=== PATIENT | male | born 1940 | race Caucasian/White ===

== ENCOUNTER 2018-02-21 12:01 | Inpatient (IN) | payer MEDICARE, MEDICAID ==
--- NOTE | 2018-02-21 12:13 | ED Physician Chart ---
ED Chief Complaint/HPI - Patient Information Date Seen:: 02/21/18 Time Seen:: 12:08 Chief Complaint:: cough History of Present Illness:: 77 yr old male here from [facility] in [place] at the bedside bib paramedics for cough for 3 dAYS ALONG WITH CONGESTION AND TROUBLE BRING ING UP THE PHLEGM PT BOUDREAUX S MODERATE DEMENTIA AND IS NOT CAPABLE OF TAKING CARE OF HIMSELF Allergies:: Allergies Allergy/AdvReac Type Severity Reaction Status Date / Time MDX No Known Allergies - Nka Allergy Verified 12/23/12 12:45 [No Known Allergies - Nka] Historian:: Family Member () ED Review of Systems - Review of Systems Pulmonary: Cough ED Past Medical History - Past Medical History Past Medical History: DM ED Physical Exam - Physical Examination General/Constitutional: Awake, Well-developed, well-nourished, No distress Other Gen/Cons comments:: PT NOT ANSWERING NOT CONVERSING MUCH Head: Atraumatic Eyes: Lids, conjuctiva normal Skin: Nl inspection ENMT: External ears, nose nl Neck: Nontender Respiratory: Nl effort/Exclusion Cardio Vascular: No murmur, gallop, rubs GI: No tenderness/rebounding/guarding, No hernia : No CVA tenderness Extremities: No tenderness or effusion ED Assessment - Assessment General Assessment: DEMENTIA WEAKNESS COUGH ED Septic Shock - . Is Septic Shock (SBP<90, OR Lactate>4 mmol\L) present?: No ED Reassessment (Disposition) - Diagnosis Diagnosis:: COUGH CONGESTION IN ELDERLY MALE WITH DEMENTIA - Patient Disposition Discharge/Transfer:: Acute Care w/in this hosp
[2018-02-21] MEDS ORDERED: Sodium Chloride 0.9% 1,000 ML IV ONE (12:20)
[2018-02-21 12:46] LABS: % BASOPHILS 0.3 % (0.0-2.0); % EOSINOPHILS 5.2 % (0.0-5.0); % LYMPHOCYTES 13.7 % (20.0-50.0); % NEUTROPHILS 70.8 % (40.0-80.0); EOSINOPHILE ABSOLUTE 0.6 Th/cmm (0.1-0.4); HEMATOCRIT 43.4 % (41.0-60); HEMOGLOBIN 14.4 gm/dL (12-16); LYMPHOCYTE ABSOLUTE 1.6 Th/cmm (1.5-3.0); MEAN CELL VOLUME 89.5 fl (80-99); MEAN CORPUSCULAR HEMOGLOBIN 29.8 pg (27.0-31.0); MEAN CORPUSCULAR HGB CONC 33.3 pg (28.0-36.0); MONOCYTE ABSOLUTE 1.1 Th/cmm (0.3-1.0); NEUTROPHILE ABSOLUTE 8.1 Th/cmm (1.8-8.0); PLATELET COUNT 335 Th/cmm (150-400); RED BLOOD COUNT 4.84 Mil/cmm (3.80-5.80); RED CELL DISTRIBUTION WIDTH 12.8 % (11.5-20.0); WHITE BLOOD COUNT 11.4 Th/cmm (4.8-10.8)
[2018-02-21 12:57] LABS: INR 1.01 (0.5-1.4); PROTHROMBIN TIME (TEST) 10.5 SECONDS (9.5-11.5)
[2018-02-21 13:01] LABS: ALBUMIN 3.7 gm/dL (4.2-5.5); ALKALINE PHOSPHATASE 156 U/L (34-104); ANION GAP 11.4 (7.0-16.0); BILIRUBIN,TOTAL 0.6 mg/dL (0.3-1.0); BUN - UREA NITROGEN 25 mg/dL (7-25); CALCIUM SERUM 8.9 mg/dL (8.6-10.3); CARBON DIOXIDE 25.9 mEq/L (21.0-31.0); CHLORIDE 100 mEq/L (98-107); CREATININE - SERUM 1.2 mg/dL (0.7-1.3); GLUCOSE 121 mg/dL (70-105); POTASSIUM SERUM 3.3 mEq/L (3.5-5.1); SGOT 23 U/L (13-39); SGPT/ALT 16 U/L (7-52); SODIUM SERUM 134 mEq/L (136-145); TOTAL PROTEIN,SERUM 7.4 gm/dL (6.0-8.3)
[2018-02-21 15:21] LABS: URINE BILIRUBIN NEGATIVE (NEGATIVE); URINE BLOOD NEGATIVE (NEGATIVE); URINE GLUCOSE (UA) NEGATIVE (NEGATIVE); URINE KETONE TRACE mg/dL (NEGATIVE); URINE LEUKOCYTE ESTERASE NEGATIVE (NEGATIVE); URINE MICROSCOPIC INDICATED? YES; URINE NITRATE NEGATIVE (NEGATIVE); URINE PROTEIN NEGATIVE (NEGATIVE); URINE SOURCE CLEAN C; URINE UROBILINOGEN 0.2 E.U./dL (0.2 - 1.0)
[2018-02-21 15:27] LABS: URINE CLARITY CLEAR (CLEAR); URINE COLOR YELLOW
[2018-02-21 15:28] LABS: URINE BACTERIA NONE SEEN /hpf (NONE SEEN); URINE EPITHELIAL CELLS NONE SEEN /lpf (FEW); URINE RBC NONE SEEN /hpf (0-5); URINE WBC NONE SEEN /hpf (0-5)
[2018-02-21] MEDS ORDERED: D5-0.45NS w/20 mEq KCL 1,000 ML IV ONE (16:35)
[2018-02-21] MEDS: D5-0.45NS w/20 mEq KCL 1,000 ML IV SCH (16:43)
[2018-02-21] MEDS ORDERED: Pneumococcal Vaccine 0.5 mL Vial IM ONE (17:34)
[2018-02-21] MEDS ORDERED: APAP/Codeine 300 mg/30 mg Tab PO PRN (17:40)
--- NOTE | 2018-02-21 19:46 | History & Physical ---
ADMIT DATE: 02/21/2018 CHIEF COMPLAINT: Multiple falls. HISTORY OF PRESENT ILLNESS: The patient is a 77-year-old male with long history of hypertension, degenerative joint disease, seizure disorder, presented to the Emergency Room with multiple falls. Initial workup significant for mild elevation of the troponin. The patient admitted to the hospital. He denies any chest pain, no nausea or vomiting. No fever, no chills, no dysuria or hematuria. PAST MEDICAL HISTORY: Significant for seizure disorder and hypertension. PAST SURGICAL HISTORY: No recent surgery. ALLERGIES: None. MEDICATIONS: Follow admission reconciliation. SOCIAL HISTORY: No alcohol, no drug. No smoke. FAMILY HISTORY: Noncontributory. REVIEW OF SYSTEMS: RENAL SYSTEM: No history of chronic renal disorder. CARDIOVASCULAR SYSTEM: No coronary artery disease. ENDOCRINE SYSTEM: No diabetes or thyroid problem. GASTROINTESTINAL SYSTEM: Lower gastrointestinal bleed. NEUROLOGICAL SYSTEM: Seizure disorder. MUSCULOSKELETAL SYSTEM: Has degenerative joint disease. RESPIRATORY SYSTEM: No asthma. GENITOURINARY: No dysuria or hematuria. PHYSICAL EXAMINATION: GENERAL: He is awake, alert, mildly confused. VITAL SIGNS: Temperature 98.6, heart rate 68, blood pressure 159/77. HEENT: Normocephalic. Pupils reactive to light and accommodation. Sclerae clear. NECK: Supple. Negative for lymphadenopathy, JVD or bruit. CHEST: Entry of air bilaterally normal. No rhonchi or wheezing. HEART: S1, S2. No murmur or gallop rhythm. ABDOMEN: Soft, bowel sounds positive. EXTREMITIES: No edema. NEUROLOGIC: He is awake, mildly confused, has weakness of lower extremities. LABORATORY DATA: White blood cell 11.4, hemoglobin 14.4, hematocrit 43.4, platelet 335. INR 1.01. Sodium 134, potassium 3.3, BUN 25, creatinine ___.2. Troponin 0.4. ASSESSMENT: 1. Multiple falls. 2. Hypertension. 3. Seizure disorder for elevation of abnormal cardiac enzyme. 4. Degenerative joint disease. PLAN: The patient admitted to telemetry under Dr. Antonio's service. Start him on cardiac diet. The patient will resume his medication and diet. Troponin in a.m. Dilantin level in a.m. Phenobarbital level in a.m. The patient is a full code. JOB# [id number]
[2018-02-21] MEDS ORDERED: Non-Formulary Item 1 EA (Melatonin [Melatonin] 6 MG) PO SCH (21:00)
[2018-02-22] MEDS: D5-0.45NS w/20 mEq KCL 1,000 ML IV SCH ×2 (05:25→18:06)
[2018-02-22 07:36] LABS: PHENYTOIN 31.9 ug/ml (10.0-20.0)
--- NOTE | 2018-02-22 08:28 | Diagnostic Imaging Report ---
CHEST X-RAY: AP view INDICATION: Shortness of breath COMPARISON: None FINDINGS: Increased interstitial lung markings are noted with mild elevation of the left hemidiaphragm. No focal consolidation or effusions. Skinfold is seen along the right hemithorax. No evidence of pneumothorax. Heart size normal. Degenerative changes of the spine are noted. IMPRESSION: Increased interstitial lung markings suggestive of chronic lung changes. No focal consolidation is identified.
--- NOTE | 2018-02-22 08:28 | Diagnostic Imaging Report ---
Right tib-fib 2 views Indication: pain Comparison: none Findings: Degenerative changes of the knee joint and ankle joint are noted with postsurgical changes of the medial malleolus. Soft tissue swelling is seen along the lateral malleolus region. No evidence of an acute fracture or dislocation. Atherosclerosis is noted. Impression: No evidence of an acute fracture. Soft tissue swelling of the right lateral malleolus region is noted. Degenerative changes. Postsurgical changes of the medial malleolus. Atherosclerotic vascular disease. In the setting of trauma, if clinical symptoms persist and there is continued concern for an occult fracture, follow up exams in 5-7 days is suggested.
[2018-02-22] MEDS: Lactulose 10 Gm/15 mL 30mL UDC PO SCH (08:54)
[2018-02-22] MEDS: Non-Formulary Item 1 EA (Protein Supplement [Promod] 30 ML) PO SCH (08:57)
[2018-02-22] MEDS ORDERED: MELOXICAM 15 MG PO SCH (09:00)
[2018-02-22] MEDS ORDERED: Non-Formulary Item 1 EA (Duloxetine Hcl [Cymbalta] 60 MG) PO SCH (09:00)
--- NOTE | 2018-02-22 21:01 | Internal Medicine Prog Note ---
Internal Medicine Subjective - Subjective Service Date: 02/22/18 Patient seen and examined:: with staff Patient is:: awake, in bed, confused Per staff patient has:: no adverse event (HE FEELS WEAK) Internal Medicine Objective - Results Result Diagrams: 02/21/18 12:30 02/21/18 12:30 Recent Labs: Laboratory Last Values WBC 11.4 Th/cmm (4.8-10.8) H 02/21/18 12:30 RBC 4.84 Mil/cmm (3.80-5.80) 02/21/18 12:30 Hgb 14.4 gm/dL (12-16) 02/21/18 12:30 Hct 43.4 % (41.0-60) 02/21/18 12:30 MCV 89.5 fl (80-99) 02/21/18 12:30 MCH 29.8 pg (27.0-31.0) 02/21/18 12:30 MCHC Differential 33.3 pg (28.0-36.0) 02/21/18 12:30 RDW 12.8 % (11.5-20.0) 02/21/18 12:30 Plt Count 335 Th/cmm (150-400) 02/21/18 12:30 MPV 7.0 fl 02/21/18 12:30 Neutrophils % 70.8 % (40.0-80.0) 02/21/18 12:30 Lymphocytes % 13.7 % (20.0-50.0) L 02/21/18 12:30 Monocytes % 10.0 % (2.0-10.0) 02/21/18 12:30 Eosinophils % 5.2 % (0.0-5.0) H 02/21/18 12:30 Basophils % 0.3 % (0.0-2.0) 02/21/18 12:30 PT 10.5 SECONDS (9.5-11.5) 02/21/18 12:30 INR 1.01 (0.5-1.4) 02/21/18 12:30 PTT (Actin FS) 27.0 SECONDS (26.0-38.0) 02/21/18 12:30 Sodium 134 mEq/L (136-145) L 02/21/18 12:30 Potassium 3.3 mEq/L (3.5-5.1) L 02/21/18 12:30 Chloride 100 mEq/L (98-107) 02/21/18 12:30 Carbon Dioxide 25.9 mEq/L (21.0-31.0) 02/21/18 12:30 Anion Gap 11.4 (7.0-16.0) 02/21/18 12:30 BUN 25 mg/dL (7-25) 02/21/18 12:30 Creatinine 1.2 mg/dL (0.7-1.3) 02/21/18 12:30 Est GFR ( Amer) TNP 02/21/18 12:30 Est GFR (Non-Af Amer) TNP 02/21/18 12:30 BUN/Creatinine Ratio 20.8 02/21/18 12:30 Glucose 121 mg/dL (70-105) H 02/21/18 12:30 POC Glucose 121 MG/DL (70-105) H 02/22/18 02:51 Calcium 8.9 mg/dL (8.6-10.3) 02/21/18 12:30 Total Bilirubin 0.6 mg/dL (0.3-1.0) 02/21/18 12:30 AST 23 U/L (13-39) 02/21/18 12:30 ALT 16 U/L (7-52) 02/21/18 12:30 Alkaline Phosphatase 156 U/L (34-104) H 02/21/18 12:30 Troponin I 0.08 ng/mL (0.01-0.05) H* D 02/22/18 05:45 Total Protein 7.4 gm/dL (6.0-8.3) 02/21/18 12:30 Albumin 3.7 gm/dL (4.2-5.5) L 02/21/18 12:30 Globulin 3.7 gm/dL 02/21/18 12:30 Albumin/Globulin Ratio 1.0 (1.0-1.8) 02/21/18 12:30 Urine Source CLEAN C 02/21/18 15:00 Urine Color YELLOW 02/21/18 15:00 Urine Clarity CLEAR (CLEAR) 02/21/18 15:00 Urine pH 6.0 (4.6 - 8.0) 02/21/18 15:00 Ur Specific [place] >= 1.030 (1.005-1.030) 02/21/18 15:00 Urine Protein NEGATIVE mg/dL (NEGATIVE) 02/21/18 15:00 Urine Glucose (UA) NEGATIVE mg/dL (NEGATIVE) 02/21/18 15:00 Urine Ketones TRACE mg/dL (NEGATIVE) 02/21/18 15:00 Urine Blood NEGATIVE (NEGATIVE) 02/21/18 15:00 Urine Nitrate NEGATIVE (NEGATIVE) 02/21/18 15:00 Urine Bilirubin NEGATIVE (NEGATIVE) 02/21/18 15:00 Urine Urobilinogen 0.2 E.U./dL (0.2 - 1.0) 02/21/18 15:00 Ur Leukocyte Esterase NEGATIVE (NEGATIVE) 02/21/18 15:00 Urine RBC NONE SEEN /hpf (0-5) 02/21/18 15:00 Urine WBC NONE SEEN /hpf (0-5) 02/21/18 15:00 Ur Epithelial Cells NONE SEEN /lpf (FEW) 02/21/18 15:00 Urine Bacteria NONE SEEN /hpf (NONE SEEN) 02/21/18 15:00 Phenytoin 31.9 ug/ml (10.0-20.0) H* 02/22/18 05:45 Phenobarbital 15.9 ug/ml (10-40.0) 02/22/18 05:45 - Physical Exam Vitals and I&O: Vital Signs Temp 97.1 F 02/22/18 16:00 Pulse 68 02/22/18 19:19 Resp 18 02/22/18 20:00 BP 125/69 02/22/18 17:58 Pulse Ox 96 02/22/18 19:19 Intake & Output 02/22/18 02/22/18 02/23/18 06:59 18:59 06:59 Intake Total 952.5 1351.25 120 Output Total 1000 200 Balance 952.5 351.25 -80 Weight (lbs) 90.35 kg 90.435 kg 90.435 kg Intake: Intake, IV Amount 952.5 951.25 D5-0.45NS w/20 mEq KCL 1, 952.5 951.25 000 ml @ 75 mls/hr IV . [id number] ARIN Rx#:[id number] Oral 400 120 Output: Urine 1000 200 Other: # Voids 1 1 # Bowel Movements 0 Weight Source Bedscale Bedscale Bedscale Active Medications: Current Medications Acetaminophen (Tylenol) 650 mg PO Q6HR PRN PRN Reason: TEMP >100 OR PAIN Stop: 04/22/18 17:39 Acetaminophen/Codeine Phosphate (Tylenol W/Codeine #3) 1 tab PO Q6HR PRN PRN Reason: MODERATE/SEVERE PAIN Stop: 04/22/18 17:39 Last Admin: 02/22/18 03:07 Dose: 1 tab Amlodipine Besylate (Norvasc) 5 mg PO BID ARIN Stop: 04/23/18 08:59 Last Admin: 02/22/18 17:58 Dose: 5 mg Docusate Sodium (Colace) 250 mg PO BID ARIN Stop: 04/23/18 08:59 Last Admin: 02/22/18 17:58 Dose: 250 mg Duloxetine HCl (Cymbalta) 60 mg PO DAILY ARIN Stop: 04/23/18 08:59 Hydrochlorothiazide (Hctz) 12.5 mg PO DAILY ARIN Stop: 04/23/18 08:59 Last Admin: 02/22/18 08:54 Dose: 12.5 mg Potassium Chloride/Dextrose/Sod Cl (D5-0.45ns W/20 Meq Kcl) 1,000 mls @ 75 mls/ hr IV .[id number] ARIN Stop: 04/22/18 15:27 Last Admin: 02/22/18 18:06 Dose: 75 mls/hr Lactulose (Cephulac) 20 gm PO DAILY ARIN Stop: 04/23/18 08:59 Last Admin: 02/22/18 08:54 Dose: 20 gm Lorazepam (Ativan) 1 mg PO Q6HR PRN; Protocol PRN Reason: Agitation Stop: 04/23/18 07:02 Miscellaneous (Melatonin [Melatonin]) 6 mg PO HS ARIN Stop: 04/22/18 20:59 Miscellaneous (Meloxicam [Mobic*]) 15 mg PO DAILY ARIN Stop: 04/23/18 08:59 Miscellaneous (Protein Supplement [Promod]) 30 ml PO DAILY ARIN Stop: 04/23/18 08:59 Last Admin: 02/22/18 08:57 Dose: Not Given Morphine Sulfate (Ms-Contin) 30 mg PO Q12H ARIN Stop: 04/22/18 17:44 Last Admin: 02/22/18 17:59 Dose: 30 mg Phenobarbital (Phenobarbital) 32.4 mg PO BID ARIN Stop: 04/23/18 08:59 Last Admin: 02/22/18 17:58 Dose: 32.4 mg Phenytoin (Dilantin) 200 mg PO DAILY [facility] Stop: 04/23/18 08:59 Last Admin: 02/22/18 08:55 Dose: Not Given Phenytoin (Dilantin) 300 mg PO 1700 ARIN Stop: 04/23/18 16:59 Last Admin: 02/22/18 17:59 Dose: Not Given Phenytoin (Dilantin) 300 mg PO HS ARIN Stop: 04/22/18 20:59 Last Admin: 02/22/18 20:56 Dose: Not Given General: demented HEENT: PERRLA, anicteric sclerae, throat clear Neck: No JVD, No thyromegaly, +2 carotid pulse wo bruit, No LAD Lungs: CTAB Cardiovascular: Normal S1, Normal S2, without murmur Abdomen: non-tender, non-distended Extremities: clear Neurological: no change Internal Medicine Assmt/Plan - Assessment Assessment: 1.DILANTIN OVERDOSE. 2.HTN. 3.DJD. 4.SEIZURE DISORDER. - Plan Plan: HOLD DILANTIN.CHECK DILANTIN IN AM.
[2018-02-23] MEDS: Lactulose 10 Gm/15 mL 30mL UDC PO SCH (08:52)
[2018-02-23] MEDS: D5-0.45NS w/20 mEq KCL 1,000 ML IV SCH (17:45)
[2018-02-23] MEDS: Non-Formulary Item 1 EA (Protein Supplement [Promod] 30 ML) PO SCH (18:52)
--- NOTE | 2018-02-23 22:16 | Internal Medicine Prog Note ---
Internal Medicine Subjective - Subjective Service Date: 02/23/18 Patient seen and examined:: with staff (HE FEELS BETTER,NO CHEST PAIN.) Patient is:: awake, in bed, confused Per staff patient has:: no adverse event (HE FEELS WEAK) Internal Medicine Objective - Results Result Diagrams: 02/21/18 12:30 02/21/18 12:30 Recent Labs: Laboratory Last Values WBC 11.4 Th/cmm (4.8-10.8) H 02/21/18 12:30 RBC 4.84 Mil/cmm (3.80-5.80) 02/21/18 12:30 Hgb 14.4 gm/dL (12-16) 02/21/18 12:30 Hct 43.4 % (41.0-60) 02/21/18 12:30 MCV 89.5 fl (80-99) 02/21/18 12:30 MCH 29.8 pg (27.0-31.0) 02/21/18 12:30 MCHC Differential 33.3 pg (28.0-36.0) 02/21/18 12:30 RDW 12.8 % (11.5-20.0) 02/21/18 12:30 Plt Count 335 Th/cmm (150-400) 02/21/18 12:30 MPV 7.0 fl 02/21/18 12:30 Neutrophils % 70.8 % (40.0-80.0) 02/21/18 12:30 Lymphocytes % 13.7 % (20.0-50.0) L 02/21/18 12:30 Monocytes % 10.0 % (2.0-10.0) 02/21/18 12:30 Eosinophils % 5.2 % (0.0-5.0) H 02/21/18 12:30 Basophils % 0.3 % (0.0-2.0) 02/21/18 12:30 PT 10.5 SECONDS (9.5-11.5) 02/21/18 12:30 INR 1.01 (0.5-1.4) 02/21/18 12:30 PTT (Actin FS) 27.0 SECONDS (26.0-38.0) 02/21/18 12:30 Sodium 134 mEq/L (136-145) L 02/21/18 12:30 Potassium 3.3 mEq/L (3.5-5.1) L 02/21/18 12:30 Chloride 100 mEq/L (98-107) 02/21/18 12:30 Carbon Dioxide 25.9 mEq/L (21.0-31.0) 02/21/18 12:30 Anion Gap 11.4 (7.0-16.0) 02/21/18 12:30 BUN 25 mg/dL (7-25) 02/21/18 12:30 Creatinine 1.2 mg/dL (0.7-1.3) 02/21/18 12:30 Est GFR ( Amer) TNP 02/21/18 12:30 Est GFR (Non-Af Amer) TNP 02/21/18 12:30 BUN/Creatinine Ratio 20.8 02/21/18 12:30 Glucose 121 mg/dL (70-105) H 02/21/18 12:30 POC Glucose 121 MG/DL (70-105) H 02/22/18 02:51 Calcium 8.9 mg/dL (8.6-10.3) 02/21/18 12:30 Total Bilirubin 0.6 mg/dL (0.3-1.0) 02/21/18 12:30 AST 23 U/L (13-39) 02/21/18 12:30 ALT 16 U/L (7-52) 02/21/18 12:30 Alkaline Phosphatase 156 U/L (34-104) H 02/21/18 12:30 Troponin I 0.08 ng/mL (0.01-0.05) H* D 02/22/18 05:45 Total Protein 7.4 gm/dL (6.0-8.3) 02/21/18 12:30 Albumin 3.7 gm/dL (4.2-5.5) L 02/21/18 12:30 Globulin 3.7 gm/dL 02/21/18 12:30 Albumin/Globulin Ratio 1.0 (1.0-1.8) 02/21/18 12:30 Urine Source CLEAN C 02/21/18 15:00 Urine Color YELLOW 02/21/18 15:00 Urine Clarity CLEAR (CLEAR) 02/21/18 15:00 Urine pH 6.0 (4.6 - 8.0) 02/21/18 15:00 Ur Specific [place] >= 1.030 (1.005-1.030) 02/21/18 15:00 Urine Protein NEGATIVE mg/dL (NEGATIVE) 02/21/18 15:00 Urine Glucose (UA) NEGATIVE mg/dL (NEGATIVE) 02/21/18 15:00 Urine Ketones TRACE mg/dL (NEGATIVE) 02/21/18 15:00 Urine Blood NEGATIVE (NEGATIVE) 02/21/18 15:00 Urine Nitrate NEGATIVE (NEGATIVE) 02/21/18 15:00 Urine Bilirubin NEGATIVE (NEGATIVE) 02/21/18 15:00 Urine Urobilinogen 0.2 E.U./dL (0.2 - 1.0) 02/21/18 15:00 Ur Leukocyte Esterase NEGATIVE (NEGATIVE) 02/21/18 15:00 Urine RBC NONE SEEN /hpf (0-5) 02/21/18 15:00 Urine WBC NONE SEEN /hpf (0-5) 02/21/18 15:00 Ur Epithelial Cells NONE SEEN /lpf (FEW) 02/21/18 15:00 Urine Bacteria NONE SEEN /hpf (NONE SEEN) 02/21/18 15:00 Phenytoin 27.6 ug/ml (10.0-20.0) H* 02/23/18 04:35 Phenobarbital 15.9 ug/ml (10-40.0) 02/22/18 05:45 - Physical Exam Vitals and I&O: Vital Signs Temp 98.2 F 02/23/18 16:00 Pulse 66 02/23/18 16:23 Resp 18 02/23/18 20:00 BP 149/56 02/23/18 16:23 Pulse Ox 95 02/23/18 16:00 Intake & Output 02/23/18 02/23/18 02/24/18 06:59 18:59 06:59 Intake Total 120 1600 140 Output Total 200 Balance -80 1600 140 Weight (lbs) 90.435 kg 90.435 kg 90.435 kg Intake: Intake, IV Amount 1000 D5-0.45NS w/20 mEq KCL 1, 1000 000 ml @ 75 mls/hr IV . [id number] ARIN Rx#:[id number] Oral 120 600 140 Output: Urine 200 Other: # Voids 1 2 1 Weight Source Bedscale Bedscale Bedscale Active Medications: Current Medications Acetaminophen (Tylenol) 650 mg PO Q6HR PRN PRN Reason: TEMP >100 OR PAIN Stop: 04/22/18 17:39 Acetaminophen/Codeine Phosphate (Tylenol W/Codeine #3) 1 tab PO Q6HR PRN PRN Reason: MODERATE/SEVERE PAIN Stop: 04/22/18 17:39 Last Admin: 02/22/18 03:07 Dose: 1 tab Amlodipine Besylate (Norvasc) 5 mg PO BID ARIN Stop: 04/23/18 08:59 Last Admin: 02/23/18 16:23 Dose: 5 mg Docusate Sodium (Colace) 250 mg PO BID ARIN Stop: 04/23/18 08:59 Last Admin: 02/23/18 16:22 Dose: 250 mg Duloxetine HCl (Cymbalta) 60 mg PO DAILY [facility]IN Stop: 04/24/18 00:14 Last Admin: 02/23/18 08:52 Dose: 60 mg Hydrochlorothiazide (Hctz) 12.5 mg PO DAILY [facility]IN Stop: 04/23/18 08:59 Last Admin: 02/23/18 08:52 Dose: 12.5 mg Potassium Chloride/Dextrose/Sod Cl (D5-0.45ns W/20 Meq Kcl) 1,000 mls @ 75 mls/ hr IV .[id number] ARIN Stop: 04/22/18 15:27 Last Admin: 02/23/18 17:45 Dose: 75 mls/hr Lactulose (Cephulac) 20 gm PO DAILY [facility]IN Stop: 04/23/18 08:59 Last Admin: 02/23/18 08:52 Dose: 20 gm Lorazepam (Ativan) 1 mg PO Q6HR PRN; Protocol PRN Reason: Agitation Stop: 04/23/18 07:02 Miscellaneous (Melatonin [Melatonin]) 6 mg PO HS ARIN Stop: 04/22/18 20:59 Miscellaneous (Meloxicam [Mobic*]) 15 mg PO DAILY [facility]IN Stop: 04/23/18 08:59 Morphine Sulfate (Ms-Contin) 30 mg PO Q12H AIRN Stop: 04/22/18 17:44 Last Admin: 02/23/18 17:46 Dose: 30 mg Phenobarbital (Phenobarbital) 32.4 mg PO BID ARIN Stop: 04/23/18 08:59 Last Admin: 02/23/18 16:23 Dose: 32.4 mg Phenytoin (Dilantin) 200 mg PO DAILY [facility]IN Stop: 04/23/18 08:59 Last Admin: 02/23/18 08:53 Dose: Not Given Phenytoin (Dilantin) 300 mg PO 1700 ARIN Stop: 04/23/18 16:59 Last Admin: 02/23/18 16:23 Dose: Not Given Phenytoin (Dilantin) 300 mg PO HS ARIN Stop: 04/22/18 20:59 Last Admin: 02/22/18 20:56 Dose: Not Given General: demented HEENT: PERRLA, anicteric sclerae, throat clear Neck: No JVD, No thyromegaly, +2 carotid pulse wo bruit, No LAD Lungs: CTAB Cardiovascular: Normal S1, Normal S2, without murmur Abdomen: non-tender, non-distended Extremities: clear Neurological: no change Internal Medicine Assmt/Plan - Assessment Assessment: 1.DILANTIN OVERDOSE. 2.HTN. 3.DJD. 4.SEIZURE DISORDER. - Plan Plan: HOLD DILANTIN.CHECK DILANTIN IN AM.
[2018-02-24] MEDS: D5-0.45NS w/20 mEq KCL 1,000 ML IV SCH (06:44)
[2018-02-24] MEDS: Lactulose 10 Gm/15 mL 30mL UDC PO SCH (09:07)
== END 2018-02-24 18:00 | DRG 917 ==
LOC: ER 12:01 → TELE 16:07
PROVIDERS: ADMIT Family Medicine; ATTEND Family Medicine
DX: T42.0X1A Poisoning by hydantoin derivatives, accidental (unintentional), initial encounter (principal); G92 Toxic encephalopathy; E87.1 Hypo-osmolality and hyponatremia; R29.6 Repeated falls; I10 Essential (primary) hypertension; M19.90 Unspecified osteoarthritis, unspecified site; Z23 Encounter for immunization; E11.9 Type 2 diabetes mellitus without complications; F03.90 Unspecified dementia, unspecified severity, without behavioral disturbance, psychotic disturbance, mood disturbance, and anxiety; G40.909 Epilepsy, unspecified, not intractable, without status epilepticus; Y92.89 Other specified places as the place of occurrence of the external cause
CPT/HCPCS: 36415-UA; 71045-TC; 73590-TC-RT; 80053-TC; 80184-TC; 80185-TC; 81001-TC; 82948-90; 84484-TC; 85025-TC; 85610-TC; 90784; 93005; 94760; J7030; Z7610